=== PATIENT | male | born 1950 | race Caucasian/White ===

== ENCOUNTER 2019-11-06 19:16 | Emergency (ER) | payer OTHER, BC ==
[~2019-11-06] VITALS: Ht 185.4 cm; Wt 93.9 kg
[2019-11-06 19:51] VITALS: BP_SYST 134
--- NOTE | 2019-11-06 19:51 | NUR ---
Patient to ER bed 7 to gown for evaluation. Side rails up. Report given to ARTEM STANTON.
--- NOTE | 2019-11-06 20:02 | NUR ---
ADRIANA KIRBY at bedside examining patient.
--- NOTE | 2019-11-06 20:05 | NUR ---
Pt presents to ER c/o L hip pain radiating to L hip. Pt fell on edge of his pool. Rates pain 03/09 Denies LOC, n/v.
[2019-11-06] MEDS ORDERED: HYDROcodone/ACETAMIN 5-325 MG TAB (NORCO/ VICODIN) PO ONE (20:15)
[2019-11-06 20:53] VITALS: BP_SYST 134
--- NOTE | 2019-11-06 20:53 | NUR ---
Patient given written and verbal discharge instructions and verbalizes understanding. ER MD discussed with patient the results and treatment provided. Patient in stable condition. ID arm band removed. Rx of [place] and ibuprofen given. Patient educated on pain management and to follow up with PMD. Pain Scale 5/10 Opportunity for questions provided and answered. Medication side effect fact sheet provided.
== END 2019-11-06 20:53 | disposition home or self-care (01) ==
LOC: SED 19:16
DX: S80.212A Abrasion, left knee, initial encounter (principal); M25.552 Pain in left hip; M79.652 Pain in left thigh; W22.8XXA Striking against or struck by other objects, initial encounter; Y93.E9 Activity, other interior property and clothing maintenance; Y92.89 Other specified places as the place of occurrence of the external cause; Y99.8 Other external cause status
CPT/HCPCS: 73502; 73552; 99284